=== PATIENT | male | born 1955 | race Caucasian/White ===

== ENCOUNTER 2017-05-30 10:26 | Day surgery (SDC) | payer OTHER ==
[~2017-05-30] VITALS: Ht 180.3 cm; Wt 84.7 kg
[~2017-05-30 10:26] MED LIST: AMBI10TA PO; ASPI81 PO; ATOR40TA49 PO; CLOP75 PO; COMT200T PO; GABA400C5 PO; HYDR-3580 PO; LISI20 PO; NITR0.4S SL; PROP10TA6 PO; SERO200T PO; SINE25100 PO; SINE50TA PO; TIZA4 PO
[2017-05-30] MEDS ORDERED: PANT40TA3 PO (11:32)
[2017-05-30] MEDS ORDERED: CARB50TA3 PO (11:32)
[2017-05-30] MEDS ORDERED: NITR0.4S SL (11:32)
[2017-05-30] MEDS ORDERED: CARB25TA9 PO (11:32)
[2017-05-30] MEDS ORDERED: PROP10TA6 PO (11:32)
[2017-05-30] MEDS ORDERED: HYDR-2376 PO (11:32)
[2017-05-30] MEDS ORDERED: SERO100T PO (11:32)
[2017-05-30] MEDS ORDERED: TIZA4CAP3 PO (11:32)
[2017-05-30] MEDS ORDERED: ZOLP10TA3 PO (11:32)
[2017-05-30] MEDS ORDERED: GABA400C5 PO (11:32)
[2017-05-30] MEDS ORDERED: COMT200T PO (11:32)
[2017-05-30] MEDS ORDERED: ATOR20TA15 PO (11:32)
[2017-05-30] MEDS ORDERED: CLOP75TA PO (11:32)
[2017-05-30] MEDS ORDERED: ASPI81CH CHEW (11:32)
[2017-05-30 11:39] VITALS: BP 155/80; PULSE 68; RESP 16; TEMP 97.9; O2SAT 95
[2017-05-30] MEDS ORDERED: IOHEXOL 350 MG/ML 100 ML BTL (for Cath Lab) OTHER ONE (12:19)
[2017-05-30] MEDS ORDERED: HEPARIN-NS/PF INJ 500 ML ONE (12:26)
[2017-05-30] MEDS ORDERED: HEPARIN SODIUM - IV 10,000 UNITS/10 ML VIAL ONE (12:26)
[2017-05-30] MEDS ORDERED: NITROGLYCERIN INJ 5 ML ONE (12:26)
[2017-05-30] MEDS ORDERED: VERAPAMIL HCL 5 MG/2 ML VIAL ONE (12:26)
[2017-05-30] MEDS ORDERED: MIDAZOLAM HCL 2 MG/2 ML VIAL ONE ×2 (12:26→12:50)
[2017-05-30] MEDS ORDERED: MISC INFORMATION XX ONE (13:15)
[2017-05-30] MEDS ORDERED: BACITRACIN OINT 0.9 GM PKT TOP ONE (13:15)
[2017-05-30] MEDS ORDERED: ISOS30TA3 PO (13:28)
--- NOTE | 2017-05-30 13:46 | MA ---
cc: SONJA FORTUNE DATE: 05/30/2017 INDICATION Unstable angina. PROCEDURE PERFORMED 1. Fluoroscopy with interpretation. 2. Coronary angiography. 3. Left heart catheterization. METHOD Risks, benefits and alternatives were discussed with the patient. The patient understood and consented to the procedure. The patient was brought to the catheterization lab and placed on the catheterization table. Right wrist was prepped and draped in sterile fashion. Right wrist was anesthetized with 2% lidocaine. Right radial was cannulated and a 6-Nigerien 7 cm sheath was placed without difficulty. LEFT HEART CATHETERIZATION A 6-Nigerien JR-5 catheter was advanced across the aortic valve without difficulty. Intraventricular hemodynamics measured 120/10 mmHg. Left ventricular end-diastolic pressure was 10 mmHg. CORONARY ANGIOGRAPHY 1. Left main coronary is angiographically normal. 2. Left anterior descending coronary has mild luminal irregularities proximally. There is a stent in the mid segment with minor luminal irregularities. The remainder of the left anterior descending coronary is widely patent. 3. The left circumflex gives rise to an obtuse marginal branch and small left-sided posterior descending branch, codominant vessel. Otherwise angiographically normal. 4. The left coronary is a dominant circulation and the right is nondominant and angiographically normal. CONCLUSION Widely patent left anterior descending coronary stent. PLAN Will add a long-acting nitrate. Hopefully this will translate well with symptomatic improvement and there is no fixed obstructive disease. MD DALE Frankel/MARIELA /1:25 PM /1:37 PM
--- NOTE | 2017-05-31 09:24 | CATHPROC ---
[facility] HIS Report Study Information Study Number Admission Scheduled Start Study Start [id number] May 30 2017 10:26AM 05/30/2017 May 30 2017 12:04PM [place] Service Cardiac Catheterization Admit Source Facility Department Other [facility] - Irrigation Foreman Physician and Clinical Staff Initial Shaun Lopez Wastewater Project Manager Jeannie Blue,RN Other Tanya Deleon,RT(R) TECH2 Recorder Moni Carl,POST EXCHANGE MANAGER TECH2 Scrub Dawit Evans,RT(R) Procedures Performed Procedure Location (Site) Vessel Name Coronary Angiograms LCA Left Coronary Coronary Angiograms RCA Right Coronary Equipment Time Pattern Fitter Description Size Mfg Part Number Used/Scraped TRANSDUCER, TRUWAVE [id number] 12:05 SETH ARAUJO * Used W/STOCKCOCK *[id number] *[id number] *[id number] *[id number] 12:05 Neterion PACK, CCL CUSTOM * Used *[id number] 12:05 [employer]ion SUPPORT, ARTERIAL ADULT [id number] *[id number] Used [id number] 12:05 [employer] PACER PEN, SKIN DUAL W/ RULER * Used *[id number] BAND, RADIAL COMPRESSION TR [id number] 13:03 [employer]y 29CM Used LARGE 29 *[id number] SHEATH, FR6 RADIAL PRELUDE 12:05 [employer] FR 6 [id number] Used EASE 11CM [id number] 12:05 [employer] WIRE, EXCHANGE 260CM 3MMJ 260CM Used *[id number] 12:44 NAMIC TUBING, HIGH PRESSURE 48" 48" Used *[id number] 12:05 [employer]COMED OMNIPAQUE, 350 MG, 150ML 150ML [id number] Used [id number] 12:05 [employer] BLANKET,WARM AIR CCL * Used *[id number] History: Allergies Allergy Reaction No Known Allergies History: Risk Factors Family History of Hypertension Dyslipidemia Previous CA Previous Heart Failure Premature CAD Yes Yes No No No Prior Valve Prior PCI Prior PCIDate Prior CABG Surgery No Yes 04/28/2016 No Cerebrovascular Peripheral Artery Chronic Lung On Dialysis Diabetes Disease Disease Disease No No No No No History: Stress Tests Stress or Imaging Studies Performed No History: Other Current Smoker No Labs Hgb (g/dl) Hct (%) WBC (l/cumm) Platelets (thousands) 11.60-17.00 35.00-51.00 4.00-11.00 150.00-450.00 12.4 35.8 6.8 280 Glucose (mg/dl) BUN (mg/dl) Creatinine (mg/dl) BUN:Creatinine (1:x) 74.00-106.00 7.00-18.00 0.50-1.30 10.00-20.00 102 11 1.1 10 Na (meq/l) K (meq/l) 136.00-145.00 3.50-5.10 132 4.4 INR (PTT:PT) 0.90-1.10 0.9 CPK-MB (ng/ML) 0.50-3.60 Not Drawn Medication Medication Total Dose (Bolus/Oral) Medication Total Dosage/Unit 1% XYLOCAINE 10 mL FENTANYL 75 mcg HEPARIN 3000 units RADIAL COCKTAIL 5 mL (Bolus) VERSED 2 mg Medications (Bolus/Oral) Medication Time Given Dosage/Unit Administered By Reason VERSED 05/30/2017 12:38:47 PM 2 mg Jeannie Blue 2 mg VERSED given in lab by Jeannie Blue, MICHEL in Left Antecubital via Peripheral IV. Ordered by Shaun Shine. FENTANYL 05/30/2017 12:39:48 PM 50 mcg Jeannie Blue 50 mcg FENTANYL given in lab by Jeannie Blue, MICHEL in Left Antecubital via Peripheral IV. Ordered by Shaun Harrison. RADIAL COCKTAIL 05/30/2017 12:50:12 PM 5 mL (Bolus) Shaun Harrison 5 mL (Bolus) RADIAL COCKTAIL given in lab by Shaun Harrison in Right Radial via Radial. Using [Soluti on Name]. Ordered by Sahun Harrison. 200 NITRO FENTANYL 05/30/2017 12:51:15 PM 25 mcg Jeannie Blue 25 mcg FENTANYL given in lab by Jeannie Blue, MICHEL in Left Antecubital via Peripheral IV. Ordered by Shaun Harrison. 1% XYLOCAINE 05/30/2017 12:51:27 PM 10 mL Shaun Harrison 10 mL 1% XYLOCAINE given in lab by Shaun Harrison in Right Radial via Subcutaneous. Ordered by Shaun Harrison. HEPARIN 05/30/2017 12:58:30 PM 3000 units Jeannie Blue 3000 units HEPARIN given in lab by Jeannie Blue MICHEL in Left Antecubital via Peripheral IV. Ordered by Shaun Harrison. Initial Case Assessment Cardiovascular HR NIBP 64 146/83 Edema Present Skin color Skin None Normal Warm Dry Circulatory - Right Pulses Dorsalis Pedis Femoral Radial 2 2 2 Scale (0,1,2,3,4,d) Circulatory - Left Pulses Dorsalis Pedis Femoral Radial 2 2 Scale (0,1,2,3,4,d) Neurological State Oriented to time-place- Alert Moves all extremities person Respiration - General Respiration Rate SpO2 (%) (B/min) 12 98 Initial Case Assessment Cardiovascular HR NIBP 70 137/73 Edema Present Skin color Skin None Normal Warm Dry Circulatory - Right Pulses Dorsalis Pedis Femoral Radial 2 2 2 Scale (0,1,2,3,4,d) Circulatory - Left Pulses Dorsalis Pedis Femoral Radial 2 2 Scale (0,1,2,3,4,d) Neurological State Oriented to time-place- Alert Moves all extremities person Respiration - General Respiration Rate SpO2 (%) (B/min) 14 98 Chronological Log Time Study Chronological Log 12:19:47 Patient arrived via Bed. 12:19:48 Patient Name, D.O.B, / Armband Verified By R.N. 12:19:49 Consent signed by the physician and the patient and verified by the Irrigation Foreman staff. 12:19:52 Pre-op and post- op instructions given; patient acknowledges understanding of instructions. Vitals capture started with the following parameters, Patient=Adult, Interval=5 min, Initial Pr wlilwk=826 mmHg, 12:24:59 Deflation Rate=5 mmHg 12:25:03 A # 20 IV was noted in the Antecubital (left). Grade = 0 12:25:44 Patient has been NPO for More than 6Hrs. 12:25:52 Pre-op and post- op instructions given; patient acknowledges understanding of instructions. 12:25:54 Patient Warmer Placed on the Table. 12:25:56 NO Skin Breakdown- 12:26:04 HR=64 bpm, JVAP=419/83 mmhg, SpO2=99.0 %, Resp=12 B/min, Pain=0, Salvador=10, Cooper=2 12:26:14 History and physical on the chart or being dictated. Assessment: Initial Case, HR=64 BPM, BNFS=759/83 mmhg, Edema=None, Color=Normal, Skin = Warm, D ry Right Pulses: Juan J Ped=2, Femoral=2, Radial=2 12:26:15 Left Pulses: Juan J Ped=2, Femoral=2 Neurological: State=Alert, Ox3, GIORDANO Respiration: Resp=12 B/min, SpO2=98 % 12:30:36 HR=66 bpm, RZDW=597/82 mmhg, TrB9=129.0 %, Resp=14 B/min, Pain=0, Salvador=10, Cooper=2 12:35:37 HR=64 bpm, XDZZ=578/81 mmhg, SpO2=99.0 %, Resp=10 B/min, Pain=0, Salvador=10, Cooper=2 12:35:54 Right Radial and groin(s) prepped with 2% chlorhexidine, and with a 3 min. waiting time. 12:37:09 Pressure channel 1 zeroed. 12:38:47 2 mg VERSED given in lab by Jeannie Blue RN in Left Antecubital via Peripheral IV. Orde red by Shaun Harrison. 12:39:48 50 mcg FENTANYL given in lab by Jeannie Blue RN in Left Antecubital via Peripheral IV. Ordered by Shaun Harrison. 12:40:40 HR=67 bpm, IFYF=235/80 mmhg, SpO2=97.0 %, Resp=14 B/min, Pain=0, Salvador=10, Cooper=2 12:43:28 Reference ECG taken 12:45:39 HR=68 bpm, HJAF=833/78 mmhg, SpO2=94.0 %, Resp=10 B/min, Pain=0, Salvador=10, Cooper=2 Time Out. Correct patient, correct procedure,correct physician, power injector not loaded with contrast with surgical 12:45:45 team present. Time Out Concurred by MD, individual staff in procedure 12:47:20 Case Start 5 mL (Bolus) RADIAL COCKTAIL given in lab by Shaun Harrison in Right Radial via Radial. Using [ Solution Name]. 12:50:12 Ordered by Shaun Harrison. 200 NITRO A SHEATH, FR6 RADIAL PRELUDE EASE 11CM FR 6 was advanced into the Radial (right) using the [place] fied Seldinger 12:50:12 technique. 12:50:15 Access site was Radial Artery. 12:50:27 In the Radial (right) the SHEATH, FR6 RADIAL PRELUDE EASE 11CM FR [address] by Shaun Harrison. 12:51:07 HR=65 bpm, PFQA=645/79 mmhg, SpO2=96 %, Resp=9 B/min, Pain=0, Salvador=10, Cooper=2 12:51:15 25 mcg FENTANYL given in lab by Jeannie Blue, MICHEL in Left Antecubital via Peripheral IV. Ordered by Shaun Harrison. 12:51:27 10 mL 1% XYLOCAINE given in lab by Shaun Harrison in Right Radial via Subcutaneous. Ordered by Shaun Harrison. A JR 5.0 INFINITI CATHETER FR 6 was advanced over a wire. OMNIPAQUE, 350 MG, 150ML 150ML was us ed for 12:52:40 injections. 12:54:09 The RCA was injected and visualized at various angles. OMNIPAQUE, 350 MG, 150ML 150ML used . 12:55:37 HR=71 bpm, QPLF=365/76 mmhg, SpO2=97.0 %, Resp=15 B/min, Pain=0, Salvador=10, Cooper=2 Recorded Pressure: LV, HR=69, Condition=Condition 1 12:56:05 (Left Ventricle) LV 133/3/18 Recorded Pressure: LV, Ao, HR=68, Condition=Condition 1 12:56:17 (Left Ventricle) LV 118/1/12, (Aorta) Ao 126/56/90 3000 units HEPARIN given in lab by Jeannie Blue, MICHEL in Left Antecubital via Peripheral IV. O rdered by Hunter, 12:58:30 Shaun. Recorded Pressure: Ao, HR=69, Condition=Condition 1 12:58:32 (Aorta) Ao 124/61/88 After removing the current catheter a JL 3.5 INFINITI CATHETER FR 6 was advanced over a WIRE, E XCHANGE 260CM 12:59:24 3MMJ 260CM. 12:59:35 The LCA was injected and visualized at various angles. OMNIPAQUE, 350 MG, 150ML 150ML used . 13:00:36 HR=74 bpm, WYUN=246/73 mmhg, SlP8=862.0 %, Resp=9 B/min, Pain=0, Salvador=10, Cooper=2 13:01:44 Catheter was removed 13:01:50 Case End 13:02:38 Catheter(s) removed without difficulty Radial Compression Device Used. 15 mLs of air placed in BAND, RADIAL COMPRESSION TR LARGE 29 29 CM. Affected 13:02:40 hand 96 % O2 saturation. 13:03:22 No case complications noted. 13:03:24 Cine recording checked. 13:03:36 Bedside Report will be given. 13:03:38 Contrast Scanned 13:05:37 HR=70 bpm, HLQP=179/73 mmhg, SpO2=98.0 %, Resp=14 B/min, Pain=0, Salvador=10, Cooper=2 Assessment: Initial Case, HR=70 BPM, BFRZ=808/73 mmhg, Edema=None, Color=Normal, Skin = Warm, Dry Right Pulses: Juan J Ped=2, Femoral=2, Radial=2 13:05:55 Left Pulses: Juan J Ped=2, Femoral=2 Neurological: State=Alert, Ox3, GIORDANO Respiration: Resp=14 B/min, SpO2=98 % 13:10:14 Patient moved to [facility] End Study - Contrast Media Used In Study Contrast Total Opened (mL) Total Used (mL) Total Wasted (mL) Omnipaque 55 55 0 End Study - Maximum Contrast Load Max Contrast Load (mL) 384.9 End Study - Radiation Exposure Fluoro Time (minutes) 1.5 End Study - Patient Disposition Complications Transferred To Interventional Outcome No Telemetry Bed No attempt made
== END 2017-05-30 16:12 | disposition home or self-care (01) ==
LOC: HDOC 10:26 → HDIC 10:29 → HDOC 16:12
PROVIDERS: ATTEND Internal Medicine
DX: I20.0 Unstable angina (principal); I10 Essential (primary) hypertension; E78.5 Hyperlipidemia, unspecified; Z95.5 Presence of coronary angioplasty implant and graft; Z79.82 Long term (current) use of aspirin; Z79.899 Other long term (current) drug therapy
CPT/HCPCS: 86850; 86900; 86901; 93458; C1769; C1893; J1644; J2250; J3010; 93454; Q9967